=== PATIENT | female | born 1955 | race Caucasian/White ===

== ENCOUNTER → 2018-04-24 | Outpatient (CLI) | payer OTHER ==
[~2018-04-24] MED LIST: ALDACTONE50 MG PO; ALLERGY 4-HOUR4 MG PO; ATIVAN0.5 MG PO; ATIVAN1 MG PO; AUGMENTIN 875875 M1 PO; AVELOX 400 MG400 MG; CARAFATE 1 GM TA1 G1 PO; CEFTIN 250 MG250 MG PO; CIPRO500 MG PO; COLACE 100 MG100 MG PO; DILAUDID 2 MG TA2 MG PO; DILAUDID2 M1 PO; FLAGYL500 MG PO; FOLIC ACID1 MG PO; LACTULOSE10 GM/153 PO; LASIX 40 MG TAB40 M1 PO; LEVOTHYROXINE0.05 MG PO; LOTREL 10-20 M1 EACH PO; LOTREL 5-20 MG1 EACH PO; NORCO 5-325 TA1 EACH; NORCO 5-325 TA1 EACH PO; NYAMYC15 GM TOP; PERCOCET 5-3251 EACH PO; PROPRANOLOL 1010 MG PO; PROTONIX40 M1 PO; TRAMADOL 50 MG50 MG PO; UNICOMPLEX M TA1 TA1 PO; VANCO IV; VANCOCIN HCL250 MG PO; VICODIN 5-5001 EACH PO; VITAMIN B-1100 M1 PO; XANAX 0.5 MG0.5 MG PO; XIFAXAN550 MG PO; ZOFRAN 4 MG ORAL4 M1 DIS; [UNRECOGNIZED DRUG - OTHER] TP
[2018-04-24 10:39] LABS: INR 1.4; PROTIME 14.6 Seconds (9.3-11.4)
== END | disposition home or self-care (01) ==
LOC: ULTRA 09:22 → LABMALL 09:22
PROVIDERS: Internal Medicine
DX: R18.8 Other ascites (principal); K74.60 Unspecified cirrhosis of liver; Z87.19 Personal history of other diseases of the digestive system; Z87.440 Personal history of urinary (tract) infections; Z88.8 Allergy status to other drugs, medicaments and biological substances; Z79.899 Other long term (current) drug therapy

== ENCOUNTER 2018-04-27 10:51 | Emergency (ER) | payer OTHER ==
[~2018-04-27] VITALS: Ht 172.7 cm; Wt 93.5 kg
[2018-04-27] MEDS ORDERED: MAGOX 400400 MG PO (11:59)
[2018-04-27] MEDS ORDERED: EFFEXOR XR75 MG PO (12:01)
[2018-04-27] MEDS ORDERED: HYDROXYZINE HCL25 M1 PO (12:01)
[2018-04-27] MEDS ORDERED: ALDACTONE100 MG PO (12:02)
[2018-04-27] MEDS ORDERED: PEPCID20 MG PO (12:03)
[2018-04-27 12:04] LABS: HEMOGLOBIN 9.5 gm/dL (12.0-15.0); WBC 6.1 thou/uL (4.0-11.0)
[2018-04-27] MEDS ORDERED: NEURONTIN 300300 M1 PO (12:04)
[2018-04-27] MEDS ORDERED: CONSTULOSE10 GM/152 PO (12:05)
[2018-04-27 12:06] LABS: HEMATOCRIT 29.5 % (37.0-47.0); MCH 24.3 pg (26.0-34.0); MCHC 32.2 g/dL (28.0-37.0); MCV 75.7 fL (80.0-100.0); PLATELET COUNT 113 thou/uL (150-400)
[2018-04-27] MEDS ORDERED: BISACODYL SUPP10 MG RECTAL (12:07)
[2018-04-27] MEDS ORDERED: SENNA8.6 MG PO (12:07)
[2018-04-27] MEDS ORDERED: OXYCODONE HCL 55 MG PO (12:07)
[2018-04-27 12:08] LABS: CALCIUM 8.5 mg/dL (8.5-10.1); POTASSIUM 3.9 mmol/L (3.5-5.1)
[2018-04-27] MEDS ORDERED: PROBIOTIC1 EAC1 PO (12:08)
[2018-04-27] MEDS ORDERED: ENSURE113 GM PO (12:09)
[2018-04-27 12:14] LABS: ALBUMIN 2.3 g/dL (3.4-5.0); TOTAL BILIRUBIN 1.6 mg/dL (<0.1-1.0)
[2018-04-27 12:16] LABS: INR 1.4; PROTIME 14.3 Seconds (9.3-11.4)
[2018-04-27 12:42] LABS: ABSOLUTE NEUTROPHILS 4.3 thou/uL (1.4-8.2); ANISOCYTOSIS 2+
[2018-04-27 12:43] LABS: HYPOCHROMASIA 1+
[2018-04-27 15:33] VITALS: BP 131/49
== END 2018-04-27 16:38 | disposition home or self-care (01) ==
LOC: ER 10:51
PROVIDERS: Emergency Medicine
DX: R18.8 Other ascites (principal); I10 Essential (primary) hypertension; K74.60 Unspecified cirrhosis of liver

== ENCOUNTER → 2018-05-01 | Outpatient (CLI) | payer OTHER ==
[~2018-05-01] MED LIST changes: +ALDACTONE100 MG PO; +BISACODYL SUPP10 MG RECTAL; +CONSTULOSE10 GM/152 PO; +EFFEXOR XR75 MG PO; +ENSURE113 GM PO; +HYDROXYZINE HCL25 M1 PO; +MAGOX 400400 MG PO; +NEURONTIN 300300 M1 PO; +OXYCODONE HCL 55 MG PO; +PEPCID20 MG PO; +PROBIOTIC1 EAC1 PO; +SENNA8.6 MG PO
== END | disposition home or self-care (01) ==
LOC: ULTRA 13:27
DX: K70.31 Alcoholic cirrhosis of liver with ascites (principal); D69.6 Thrombocytopenia, unspecified; Z87.440 Personal history of urinary (tract) infections; Z98.890 Other specified postprocedural states; Z79.899 Other long term (current) drug therapy

== ENCOUNTER 2018-09-29 11:01 | Emergency (ER) | payer OTHER ==
[~2018-09-29] VITALS: Ht 175.3 cm; Wt 77.1 kg
[2018-09-29 11:01] VITALS: BP 124/62
== END 2018-09-29 12:01 | disposition home or self-care (01) ==
LOC: ER 11:01
DX: G56.31 Lesion of radial nerve, right upper limb (principal); I10 Essential (primary) hypertension; K74.60 Unspecified cirrhosis of liver

== ENCOUNTER → 2018-11-17 | Outpatient (CLI) | payer OTHER | LOC: MRI 14:00 | DX: M75.101 Unspecified rotator cuff tear or rupture of right shoulder, not specified as traumatic (principal); M19.011 Primary osteoarthritis, right shoulder ==

== ENCOUNTER 2018-12-01 20:21 | Emergency (ER) | payer OTHER ==
[~2018-12-01] VITALS: Ht 175.3 cm; Wt 81.7 kg
[2018-12-01 23:13] VITALS: BP 116/58
== END 2018-12-01 23:26 | disposition home or self-care (01) ==
LOC: ER 20:21
DX: S52.515A Nondisplaced fracture of left radial styloid process, initial encounter for closed fracture (principal); I10 Essential (primary) hypertension; W01.0XXA Fall on same level from slipping, tripping and stumbling without subsequent striking against object, initial encounter; Y93.89 Activity, other specified; Y92.128 Other place in nursing home as the place of occurrence of the external cause; Y99.8 Other external cause status

== ENCOUNTER 2019-01-17 12:11 | Day surgery (SDC) | payer OTHER ==
[~2019-01-17] VITALS: Ht 175.3 cm; Wt 82.1 kg
[~2019-01-17 12:11] MED LIST changes: +ANBESOL9 GM TOP; +ANUSOL-HC30 GM RECTAL; -BISACODYL SUPP10 MG RECTAL; +BUMETANIDE 1 MG1 M1 PO; +CAMPRAL PO; +CYCLOBENZAPRINE5 MG PO; +DULCOLAX10 MG RECTAL; +ESTRACE42.5 GM VAG; +FAMOTIDINE 20 M20 MG PO; +FLORASTOR250 MG PO; +HYDROXYZINE HCL50 MG PO; +LIDOCAINE VISC100 ML PO; +MAG-OXIDE400 MG PO; +MYLANTA MAXIMU355 ML PO; +OXYCODONE HCL5 MG PO; +SALONPAS 3.1%-1 EACH TOP; +SENNA S TABLET1 EACH PO; +TRAZODONE HCL50 MG PO; +VENLAFAXINE HC150 M1 PO; +VITAMIN A10000 UNI3 PO; +VITAMIN D250000 UNIT PO; +VOLTAREN GEL 1100 G1 TOP; +XIFAXAN550 M1 PO; +ZINC SULFATE220 MG PO
[2019-01-17 12:40] VITALS: BP 126/57
[2019-01-17 14:09] LABS: CALCIUM 9.4 mg/dL (8.5-10.1); CREATININE 1.2 mg/dL (0.6-1.0); POTASSIUM 4.3 mmol/L (3.5-5.1)
[2019-01-17 14:15] LABS: ALBUMIN 2.8 g/dL (3.4-5.0); TOTAL BILIRUBIN 2.6 mg/dL (<0.1-1.0)
[2019-01-17 15:19] LABS: APTT 31.2 Seconds (24.5-32.8); INR 1.3; PROTIME 13.7 Seconds (9.3-11.4)
[2019-01-17 17:19] VITALS: BP 126/57
--- NOTE | 2019-01-18 09:14 | EKG ---
[address] [address] ELECTROCARDIOGRAM REPORT Name: HELEN DANG Room #: [facility]#: [id number] Admission: 01/17/19 Attend Phys: Pauline Barahona, Discharge: 01/17/19 Date of : 57 Report #: [id number] THIS REPORT FOR: //name// [facility] Test Date: 2019-01-17 Test Time: 13:41:56 Pat Name: HELEN DANG Department: Room: 150 1 Gender: F [employer] Tender: JOSE RAFAEL : 1955 Requested By: Pauline Barahona Order Number: [id number] MD: Dillon Doherty Measurements Intervals [place] Rate: 90 P: 43 MO: 146 QRS: 41 QRSD: 70 T: -14 QT: 404 QTc: 495 Interpretive Statements Sinus rhythm Nonspecific ST segment abnormality Borderline prolonged QT interval No previous ECG available for comparison Electronically Signed On 01-18-2019 9:14:19 CDT by Dillon Doherty [email or web address] <ELECTRONICALLY SIGNED> By: Dillon Doherty MD, [facility] 01/18/19 0914 1341 40 Dillon Doherty MD, FACC /EPI
--- NOTE | 2019-02-02 16:41 | O ---
[facility] [place] [address] OPERATIVE REPORT Name: HELEN DANG Room #: DEP [facility] M.R.#: [id number] Admission: 01/17/19 Attend Phys: Pauline Barahona, Discharge: 01/17/19 Date of : 57 Report #: [id number] THIS REPORT FOR: //name// CC: Brittanie Barahona DATE OF SERVICE: 01/17/2019 PREOPERATIVE DIAGNOSIS: Left distal radius fracture, intraarticular 3 or more fragments failed fixation. POSTOPERATIVE DIAGNOSIS: Left distal radius fracture, intraarticular 3 or more fragments failed fixation. PROCEDURE PERFORMED: 1. Left distal radius fracture plate and screw removal. 2. Open reduction and internal fixation of left distal radius fracture. SURGEON: Pauline Barahona MD ANESTHESIA: General mask anesthesia. ESTIMATED BLOOD LOSS: 5 mL. TOURNIQUET TIME: 97 minutes. COMPLICATIONS: None. CONDITION: Stable. DISPOSITION: To Recovery room. SPECIMEN: Include swab and tissue to microbiology. IMPLANTS REMOVED: Acumed volar distal radius locking plate. IMPLANTS UTILIZED: Arthrex volar distal radius fragment specific plate. INDICATIONS: The patient is a 63-year-old female with the above-mentioned diagnosis. She elects for operative treatment. The risks, benefits, alternatives and complications including but not limited to infection, inability to resolve any infection that may have already occurred, damage to blood vessels or nerves, nonunion, malunion, hardware failure, hardware rotation stiffness. Informed consent was obtained. The correct extremity was identified and labeled by myself after verbal confirmation of the patient as well as visual confirmation and signed informed consent. [facility] [address] [place] [address] OPERATIVE REPORT Name: HELEN DANG Room #: DEP [facility] M..#: [id number] Admission: 01/17/19 Attend Phys: Pauline Barahona, Discharge: 01/17/19 Date of : 57 Report #: [id number] DESCRIPTION OF PROCEDURE: The patient was brought to the operating room and placed on the operative room table in the supine position. Left upper extremity was sterilely prepped and draped in usual fashion. Final timeout was taken to verify correct patient, operative procedure, operative site, all concurred. She did get antibiotics prior to surgical start time. This was originally to be ordered after the cultures were taken, but the order was misunderstood. The left upper extremity was sterilely prepped and draped in the usual fashion. Final timeout was taken to verify correct patient, operative procedure, operative site, all concurred. The arm was elevated, exsanguinated and tourniquet inflated. Prior volar incision was utilized over the FCR tendon. Dissection was carried down through subcutaneous tissue with tenotomy scissors. The FCR was retracted ulnarly and the subsheath was incised. Volar contents were retracted radially. Plate was easily identified and removed without difficulty. Two of the pegs broke at the neck. These were removed without significant difficulty. There were no obvious signs of infection. The fracture site was debrided. The wound was then thoroughly irrigated with 1 liter of antibiotic saline. Next an attempt was made to reduce the fracture. The radial styloid portion was difficult to reduce and so the brachioradialis was cut. It was cut in order to facilitate reduction. Next attention was placed to the ulnar side. The ulnar fragment was extremely distal and a standard volar distal radius locking plate was applied to the bone, but it did not appear to have any reasonable fixation into the ulnar fragment and so the choice was made to perform fragment specific fixation and ulnar-sided volar hook plate was chosen. The guide was placed on to the bone and wires were used for the guide. This required multiple attempts in order to obtain the fracture in an appropriate ulnar position as well as distal position. Once the wires were placed, the wires were sequentially removed and the holes drilled and then the plate was applied to the bone. It was placed down to the bone proximally with cortical screw. The remaining locking screws were drilled, measured and appropriate size screws were placed. This appeared to have a fairly good fixation. Next, an L-type plate was chosen. The fracture was provisionally reduced and the cortical screw was placed in the gliding hole. Next, the radial portion of the L was drilled, measured and appropriate size screw was placed. Next more locking screws were placed into the shaft and then a second distal screw was placed. This was placed more radial in order to achieve some fixation. Careful attention placed to avoid any intraarticular penetration. This was checked using fluoroscopic guidance including live fluoroscopic views. The DRUJ was assessed and was found to be stable. The wound was thoroughly irrigated. AP, lateral, lateral tilt views and live fluoroscopic views all showed good position of the fracture and appropriate hardware position. The wound was thoroughly irrigated with a liter of antibiotic saline. The DRUJ was assessed. It was stable. An attempt was made to close the pronator quadratus. There was not enough tissue to close. So the skin was closed with 4-0 nylon suture. Wound was infiltrated with approximately 5 mL of 0.25% Marcaine. She was placed in a bulky dressing and a sugar tong splint and I wrote do not remove on the splint [address] [address] OPERATIVE REPORT Name: HELEN DANG Room #: DEP [facility]..#: [id number] Admission: 01/17/19 Attend Phys: Pauline Barahona, Discharge: 01/17/19 Date of : 57 Report #: [id number] in order to improve her compliance. Prior to closing the wound and after irrigation approximately 4 mL of cancellous chips was placed into the fracture site. All fingers were pink with brisk capillary refill at the conclusion of case after deflation of tourniquet and application of the dressing. All sponge and needle counts were correct. The patient was transferred to postoperative recovery room in stable condition. <ELECTRONICALLY SIGNED> By: Pauline Barahona MD 02/02/19 1641 1659 55 Pauline Barahona MD /nt
== END 2019-01-17 17:32 ==
LOC: OR 12:11 → TBA 12:11 → OR 13:06
PROVIDERS: Orthopaedic Surgery Hand Surgery
DX: S52.572K Other intraarticular fracture of lower end of left radius, subsequent encounter for closed fracture with nonunion (principal); K72.90 Hepatic failure, unspecified without coma; I73.9 Peripheral vascular disease, unspecified; F32.9 Major depressive disorder, single episode, unspecified; F41.9 Anxiety disorder, unspecified; Z90.49 Acquired absence of other specified parts of digestive tract; Z98.890 Other specified postprocedural states; Z79.899 Other long term (current) drug therapy; Z88.8 Allergy status to other drugs, medicaments and biological substances; Z87.891 Personal history of nicotine dependence; Z79.891 Long term (current) use of opiate analgesic; X58.XXXD Exposure to other specified factors, subsequent encounter
CPT/HCPCS: 50010; 50101; 50386; 53347; 55430; 56526; 57006; 57091; 57178; 62110; 62900; 64043; 65060; 70005

== ENCOUNTER 2019-01-18 00:04 | Emergency (ER) | payer OTHER ==
[~2019-01-18] VITALS: Ht 175.3 cm; Wt 83.0 kg
[2019-01-18 02:44] VITALS: BP 115/55
== END 2019-01-18 02:44 | disposition home or self-care (01) ==
LOC: ER 00:04
DX: M96.831 Postprocedural hemorrhage of a musculoskeletal structure following other procedure (principal); F32.9 Major depressive disorder, single episode, unspecified; F41.9 Anxiety disorder, unspecified; Z90.49 Acquired absence of other specified parts of digestive tract; Z90.89 Acquired absence of other organs; Z98.890 Other specified postprocedural states; Z88.5 Allergy status to narcotic agent

== ENCOUNTER 2019-01-30 06:43 | Emergency (ER) | payer OTHER ==
[~2019-01-30] VITALS: Ht 175.3 cm; Wt 79.4 kg
[2019-01-30] MEDS ORDERED: BACTRIM DS TAB1 EAC1 PO (07:27)
[2019-01-30] MEDS ORDERED: ROXICODONE5 M2 PO (09:27)
[2019-01-30 11:37] VITALS: BP 101/55
== END 2019-01-30 11:37 ==
LOC: ER 06:43
DX: S82.831A Other fracture of upper and lower end of right fibula, initial encounter for closed fracture (principal); F32.9 Major depressive disorder, single episode, unspecified; Z90.49 Acquired absence of other specified parts of digestive tract; Z87.891 Personal history of nicotine dependence; Z86.73 Personal history of transient ischemic attack (TIA), and cerebral infarction without residual deficits; Z88.5 Allergy status to narcotic agent; W06.XXXA Fall from bed, initial encounter; Y92.89 Other specified places as the place of occurrence of the external cause; Y93.89 Activity, other specified; Y99.8 Other external cause status

== ENCOUNTER → 2019-05-21 | Outpatient (CLI) | payer OTHER ==
[~2019-05-21] MED LIST changes: +BACTRIM DS TAB1 EAC1 PO; +ROXICODONE5 M2 PO
== END ==
LOC: ULTRA 13:11
DX: K70.30 Alcoholic cirrhosis of liver without ascites (principal); S52.612A Displaced fracture of left ulna styloid process, initial encounter for closed fracture; M85.80 Other specified disorders of bone density and structure, unspecified site; M19.072 Primary osteoarthritis, left ankle and foot; G56.31 Lesion of radial nerve, right upper limb; M75.101 Unspecified rotator cuff tear or rupture of right shoulder, not specified as traumatic; M66.821 Spontaneous rupture of other tendons, right upper arm; M19.011 Primary osteoarthritis, right shoulder; M25.511 Pain in right shoulder; X58.XXXA Exposure to other specified factors, initial encounter; Y93.89 Activity, other specified; Y92.89 Other specified places as the place of occurrence of the external cause; Y99.8 Other external cause status

== ENCOUNTER 2020-04-08 20:59 | Emergency (ER) | payer OTHER ==
[~2020-04-08] VITALS: Ht 175.3 cm; Wt 90.7 kg
--- NOTE | ~2020-04-08 | EMS ---
[address] [address] EMS Patient Care Report Name: HELEN DANG Room #: [facility]#: [id number] Admission: 04/08/20 Attend Phys: Discharge: Date of : 57 Report #: [id number] THIS REPORT FOR: //name// Report Transmitted: 04/08/2020 21:17 EMS Care Summary [place], [place]/[facility] Incident [id number] @ 04/08/2020 20:23 [facility] HELEN DANG Female, 64 Years 1955 Patient Address [address] [place] [address] [place] [address] Patient History Liver Failure, Patient Allergies No known allergies, Patient Medications Other, Gabapentin, Chief Complaint Suicidal ideations/ Intent Disposition Transported No Lights/[place] Reason Psychiatric Problem/Abnormal Behavior/Suicide Attempt Transported To [facility] Narrative Responded to the intermediate for report of a patient experiencing a psychiatric episode. Arrived on scene at the intermediate and received report from the nurse on scene at the nurses station. The nurse on scene advised that [address] [address] EMS Patient Care Report Name: HELEN DANG Room #: [facility]#: [id number] Admission: 04/08/20 Attend Phys: Discharge: Date of : 57 Report #: [id number] the patient had made suicidal ideations towards staff. The nurse reported that the patient was going to take a large amount of medication in an attempt to kill herself because the personnel at the facility were not bathing the patients. The nurse then presented two moderately large bags of medications that the patient had been saving. It was estimated based of the patients dosing reported by intermediate staff that the patient had been saving her medication for approximately 6 days. The patient was then found in her room alert and oriented x4 with a GCS of 15 clearly upset and crying. The patient was questioned on the events and the patient advised that she was saving her medications and made the threat to harm herself because the staff where not taking care of the patients at the facility. The patient was then assisted out of the room by her wheelchair and placed onto the stretcher. The nurse on scene was then asked to fill out a statement and the nurse advised that she could not fill out a statement but advised that she was able to type up a statement of the events. The nurse then provided the statement to EMS and EMS escorted the patient out of the facility to the ambulance where the patient was placed and packaged for transport. The patient was monitored throughout transport with no changes in mental status or condition. Patient care was transferred to the receiving facility without incident. Med unit back in service. The patients belongings as well as the medications that the patient had been saving where transferred to the receiving facility upon arrival at the time of transfer of patient care. Initial Vitals @20:51P: 99,R: 18,BP: 142/78,Pain: 0/10,GCS: 15,SpO2: 99,Revised Trauma: 12, @20:54P: 98,R: 18,BP: 141/62,Pain: 0/10,GCS: 15,CO: 0,SpO2: 96,Revised Trauma: 12, Assessments @20:36MENTAL:Person Oriented,Time Oriented,Place Oriented,Event Oriented,SKIN:HEENT:Head/Face: No Abnormalities,Neck/Airway: No Abnormalities,LUNG SOUNDS:General: No Abnormalities,ABDOMEN:General: No Abnormalities,PELVIS//GI:No Abnormalities,EXTREMITIES:Left Arm: No Abnormalities,Right Arm: No Abnormalities,Left Leg: No Abnormalities,Right Leg: No Abnormalities,PULSE:NEURO:No Abnormalities, Impression Suicide attempt Procedures @20:36ALS AssessmentSucceeded Timeline 20:22,Call Received 20:22,Dispatch Notified 20:23,Dispatched [facility] [address] [facility] [place] [address] EMS Patient Care Report Name: HELEN DANG Room #: [facility]#: [id number] Admission: 04/08/20 Attend Phys: Discharge: Date of : 57 Report #: [id number] 20:25,En Route 20:34,On Scene 20:36,At Patient 20:36,ALS Assessment,Succeeded, 20:51,BP: 142/78 M,PULSE: 99,RR: 18 R,SPO2: 99 Ox,ETCO2: ,BG: ,PAIN: 0,GCS: 15, 20:53,Depart Scene 20:54,BP: 141/62 M,PULSE: 98,RR: 18 R,SPO2: 96 Ox,ETCO2: ,BG: ,PAIN: 0,GCS: 15, 20:55,At Destination 21:11,Call Closed Disclaimer v1.1 Copyright 2020 [employer] This EMS Care Summary contains data elements from the applicable legal record (which may be displayed differently). It is designed to provide pertinent information for the following purposes: continuity of care, clinical quality, and state data reporting. The complete legal record is available to ED staff and administrators of the receiving hospital in [employer]'s Patient Tracker. All data is provided "as is."
[2020-04-08 22:07] LABS: ABSOLUTE NEUTROPHILS 2.2 thou/uL (1.4-8.2); BASOPHILS 0.9 % (0.0-2.0); HEMOGLOBIN 10.1 gm/dL (12.0-15.0); LYMPHOCYTES 16.8 % (24.0-44.0); MCH 25.6 pg (26.0-34.0); MCHC 32.6 g/dL (28.0-37.0); MCV 78.7 fL (80.0-100.0); MONOCYTES 10.1 % (1.0-8.0); PLATELET COUNT 53 thou/uL (150-400); POLYS 69.2 % (36.0-66.0); RBC 3.95 mil/uL (4.20-5.00); RDW 17.4 % (10.5-14.5); WBC 3.2 thou/uL (4.0-11.0)
[2020-04-08 22:21] LABS: ANION GAP 11 mmol/L (7-16); BUN 5 mg/dL (7-18); CHLORIDE 109 mmol/L (98-107); CO2 23 mmol/L (21-32); CREATININE 0.7 mg/dL (0.6-1.0); GLUCOSE 161 mg/dL (74-106); POTASSIUM 3.2 mmol/L (3.5-5.1); SODIUM 143 mmol/L (136-145)
[2020-04-08 22:22] LABS: CALCIUM 8.6 mg/dL (8.5-10.1); SALICYLATE < 2.8 mg/dL (2.8-20.0)
[2020-04-09 01:18] LABS: URINE BILIRUBIN NEGATIVE (Negative); URINE BLOOD NEGATIVE (Negative); URINE CLARITY CLEAR; URINE COLOR YELLOW; URINE GLUCOSE-RANDOM* NEGATIVE (Negative); URINE KETONES NEGATIVE (Negative); URINE LEUKOCYTES-REFLEX NEGATIVE (Negative); URINE NITRITE-REFLEX NEGATIVE (Negative); URINE PROTEIN (DIPSTICK) NEGATIVE (Negative)
[2020-04-09 01:27] LABS: AMP/METHAMP Negative (Negative); BARBITURATES Negative (Negative); BENZODIAZEPINES Negative (Negative); COCAINE Negative (Negative); METHADONE Negative (Negative); OPIATES Negative (Negative); PCP Negative (Negative)
[2020-04-09 08:13] VITALS: BP 152/76
== END 2020-04-09 08:16 ==
LOC: ER 20:59
PROVIDERS: Emergency Medicine
DX: F10.20 Alcohol dependence, uncomplicated (principal); Z00.8 Encounter for other general examination; S00.83XA Contusion of other part of head, initial encounter; I73.9 Peripheral vascular disease, unspecified; F32.9 Major depressive disorder, single episode, unspecified; F41.9 Anxiety disorder, unspecified; Z98.890 Other specified postprocedural states; Z90.49 Acquired absence of other specified parts of digestive tract; Z90.89 Acquired absence of other organs; Z79.899 Other long term (current) drug therapy; Z79.2 Long term (current) use of antibiotics; Z88.5 Allergy status to narcotic agent; Z87.891 Personal history of nicotine dependence; X58.XXXA Exposure to other specified factors, initial encounter; Y93.89 Activity, other specified; Y92.89 Other specified places as the place of occurrence of the external cause; Y99.8 Other external cause status; Y90.8 Blood alcohol level of 240 mg/100 ml or more